=== PATIENT | male | born 1960 | race Caucasian/White ===

== ENCOUNTER 2022-05-14 17:24 | Emergency (ER) | payer MEDICARE, SELFPAY ==
--- NOTE | 2022-05-14 17:29 | XRR_ITS ---
PROCEDURE INFORMATION: Exam: XR Chest Exam date and time: 05/14/2022 6:43 PM Age: 61 years old Clinical indication: Chest wall pain; Additional info: Syncope TECHNIQUE: Imaging protocol: Radiologic exam of the chest. Views: 1 view. COMPARISON: CR XR chest 2V* [id number] 06/08/2017 2:35 PM FINDINGS: Lungs: Unremarkable. No consolidation. Pleural spaces: Unremarkable. No pleural effusion. No pneumothorax. Heart/Mediastinum: Unremarkable. No cardiomegaly. Bones/joints: Unremarkable. XR/XR chest 1V portable [id number] IMPRESSION: No acute findings.
--- NOTE | 2022-05-14 17:29 | CTR_ITS ---
PROCEDURE INFORMATION: Exam: CT Head Without Contrast Exam date and time: 05/14/2022 7:35 PM Age: 61 years old Clinical indication: Syncope and collapse TECHNIQUE: Imaging protocol: Computed tomography of the head without contrast. Radiation optimization: All CT scans at this facility use at least one of these dose optimization techniques: automated exposure control; mA and/or kV adjustment per patient size (includes targeted exams where dose is matched to clinical indication); or iterative reconstruction. COMPARISON: CT head wo con* [id number] 06/08/2017 3:18 PM RADIATION DOSE METRICS: Total DLP (mGy-cm): 1050.78 FINDINGS: Brain: Normal. No hemorrhage. Unremarkable white matter. No mass effect. Cerebral ventricles: No ventriculomegaly. Paranasal sinuses: Visualized sinuses are unremarkable. No fluid levels. Mastoid air cells: Visualized mastoid air cells are well aerated. Bones/joints: Unremarkable. No acute fracture. Soft tissues: Unremarkable. CT/CT head wo con* [id number] IMPRESSION: No acute intracranial abnormality.
[2022-05-14 18:03] VITALS: BP 147/83; PULSE 73; RESP 15; TEMP 36.7; O2SAT 94; BMI 30.7
--- NOTE | 2022-05-14 18:15 | ECG_ITS ---
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 Measurements Intervals [place] Rate: 71 P: 42 [place]: 174 QRS: 17 QRSD: 93 T: 61 QT: 393 QTc: 429 Interpretive Statements SINUS RHYTHM NONSPECIFIC ST & T-WAVE ABNORMALITY Compared to ECG 06/08/2017 14:22:17 Incomplete right bundle-branch block no longer present T-wave abnormality still present Electronically Signed On 05-17-2022 23:06:05 CDT by Harleen Ferreira M.D. [id number]
[2022-05-14 19:12] LABS: Basophils # 0.1 10^3/uL (0.0-0.1); Basophils % 1.1 %; Eosinophils # 0.1 10^3/uL (0.0-0.8); Hematocrit 37.6 % (42.0-52.0); Hemoglobin 11.5 g/dL (11.7-16.6); Lymphocytes # 1.1 10^3/uL (0.8-4.8); Lymphocytes % 13.7 %; Mean Corpuscular HGB Conc 30.6 g/dL (30.0-36.0); Mean Corpuscular Hemoglobin 25.3 pg (28.0-34.0); Mean Corpuscular Volume 82.6 fl (80-94); Monocytes # 0.7 10^3/uL (0.2-0.9); Monocytes % 8.6 %; Neutrophils # 6.15 10^3/uL (1.8-7.7); Neutrophils % 75.1 %; Nucleated Red Blood Cells % 0 %; Platelet Count 251 10^3/cmm (130-400); Red Blood Count 4.55 10^6/uL (4.1-5.3); Red Cell Distribution Width 16.3 % (12.1-15.1); White Blood Count 8.2 10^3/uL (4.0-10.0)
--- NOTE | 2022-05-14 19:29 | ECG_ITS ---
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 Measurements Intervals [place] Rate: 74 P: 42 [place]: 179 QRS: 12 QRSD: 96 T: 56 QT: 379 QTc: 423 Interpretive Statements SINUS RHYTHM NONSPECIFIC T-WAVE ABNORMALITY Compared to ECG 05/14/2022 18:15:21 No significant changes Electronically Signed On 05-17-2022 23:17:28 CDT by Harleen Ferreira M.D. [id number]
[2022-05-14 19:41] LABS: Troponin(5th) Baseline 8 ng/L (0-15)
[2022-05-14 19:49] LABS: Alanine Aminotransferase 47 U/L (0-41); Alkaline Phosphatase 49 U/L (40-130); Anion Gap 17.5 (5-19); Aspartate Amino Transferase 74 U/L (0-40); Blood Urea Nitrogen 13 mg/dL (6-20); Calcium 9.5 mg/dL (8.5-10.5); Carbon Dioxide 24 mmol/L (22-29); Chloride 100 mmol/L (98-107); Globulin 4.1 g/dL (1.3-4.6); Glomerular Filtration Rate 68.5 mL/min (90-130); Glucose 139 mg/dL (65-115); Magnesium 2.3 mg/dL (1.7-2.3); NT Pro B Type Natriuretic Pept 21 pg/mL (0-125); Osmolality Calculated 286 mOsm/kg (285-295); Potassium 4.5 mmol/L (3.5-5.1); Sodium 137 mmol/L (136-145); Total Bilirubin 0.6 mg/dL (0.15-1.2); Total Protein 8.1 g/dL (6.6-8.7)
--- NOTE | 2022-05-14 20:25 | W.ED.DIZZY ---
HPI - Dizziness General: Chief Complaint: Dizziness Stated Complaint: syncope Time Seen by Provider: 05/14/22 19:19 Source: patient and family History of Present Illness: HPI Narrative: 61-year-old male with a complaint of 4 episodes of dizziness/wooziness and feeling like he is going to pass out since last night. Symptoms are resolved currently. They last seconds to minutes at times. With these episodes, he has had some transient blurry vision, diaphoresis and dizziness. No eulogio vertigo symptoms. No chest discomfort. He has been treated for hypertension in the past 2 years or so with atenolol. He has had episodes of quite high and quite low blood pressure evidently the last several days. He was seen at his doctor's office today, and his blood pressure medication was changed from atenolol to losartan, but he has not had any medication for blood pressure today. Initially here, blood pressure was high MD elicited complaint: dizziness and near syncope Pertinent past history: other Onset (ago): hour(s) Timing: gradual onset Severity: moderate Description: lightheadedness and near-syncope Context: other History of similar symptoms: Yes Exacerbating factors: other Relieving factors: nothing Associated symptoms: Reports diaphoresis, nausea and weakness (generalized); Denies chest pain, chills, cough, fevers/chills, headache(s), nasal congestion, short of breath or vomiting Associated neuro symptoms: Deny confusion, difficulty speaking, extremity weakness, facial numbness, facial weakness or numbness in extremities Review of Systems Const: Reports: diaphoresis; Denies: chills ENMT: Denies: nasal congestion Card: Denies: chest pain GI: Reports: nausea; Denies: vomiting Neuro: Denies: headache(s), numbness in extremities or confusion Physical Exam Const: COMMON NORMALS: no acute distress and alert GENERAL APPEARANCE: cooperative; not ill appearing and not frail appearing HENMT: COMMON NORMALS: normocephalic, atraumatic and Normal external nose present HEAD & SCALP: normocephalic and atraumatic FACE & SINUS: normal facial exam and face symmetric NOSE: Normal external nose present Eye: COMMON NORMALS: Equal, round and reactive pupils present and EOMs intact bilaterally PUPIL: Yes Equal, round and reactive pupils present Neck/C-Spine: GENERAL: Yes trachea midline Chest: CHEST: Yes Symmetrical chest wall rise Resp: COMMON NORMALS: normal respiratory effort, No retractions, No use of accessory muscles and clear to auscultation bilaterally AUSCULTATION: clear to auscultation bilaterally Cardio: COMMON NORMALS: regular rate and regular rhythm RATE: regular rate RHYTHM: regular rhythm GI: COMMON NORMALS: Normal to inspection, nondistended, normoactive bowel sounds present Extremity: COMMON NORMALS: no pedal edema Neuro: LJ COMA SCALE: document GCS findings [place] coma scale eye opening: Spontaneous Lj coma scale verbal response: Orientated Lj coma scale motor response: Obey commands [place] coma scale total score: 15 COMMON NORMALS: CN's II-XII intact bilaterally SENSORIUM/ORIENTATION: Yes alert COORDINATION/BALANCE: lgtmlc-fx-jecn test normal and bezk-mo-jltv test normal SPEECH: speech normal SENSORY EXAM: Yes extremities (intact) MOTOR EXAM: 5/5 motor strength present throughout, Pronator motor function not present and Motor fasciculations not present COORDINATION: fsdxit-wp-yqxt test normal and azeq-rw-kjqb test normal Psych: COMMON NORMALS: speech normal SPEECH: Yes normal speech Skin: COMMON NORMALS: no rashes or lesions noted GENERAL SKIN EXAM: no rashes or lesions noted Course Vital Signs: Vital signs: Vital Signs Temperature 98.0 F 05/14/22 18:03 Pulse Rate 73 05/14/22 18:03 Respiratory Rate 15 05/14/22 18:03 Blood Pressure 147/83 05/14/22 18:03 Pulse Oximetry 94 05/14/22 18:03 Oxygen Delivery Me thod 05/14/22 18:03 MDM - Dizziness Medical Decision Making Patient is asymptomatic currently. Rhythm has been sinus on the monitor. Blood pressure currently 147/78. Rate is 78. Sats 96% on room air with respirations 18. EKG shows a sinus rhythm with normal axis and intervals. There are no significant ischemic EKG changes in terms of ST or T wave changes. Hemoglobin is 11.5. White blood cell count is 8.2. BMP is not remarkable. Chest x-ray is normal. Head CT shows no acute findings. TSH is normal. Troponin did not change at 2 hours. Since patient is asymptomatic, he will be released. He will discontinue his atenolol, and continue with the losartan he was prescribed earlier today. We will make an attempt to set him up for a stress test as an outpatient. They know to return for any worsening symptoms. Lab Data : 05/14/22 19:00 05/14/22 19:00 Radiology Impressions Chest X-Ray 05/14/22: IMPRESSION: No acute findings. Head CT 05/14/22: IMPRESSION: No acute intracranial abnormality. Laboratory Results WBC 8.2 10^3/uL (4.0-10.0) 05/14/22 19:00 RBC 4.55 10^6/uL (4.1-5.3) 05/14/22 19:00 Hgb 11.5 g/dL (11.7-16.6) L 05/14/22 19:00 Hct 37.6 % (42.0-52.0) L 05/14/22 19:00 MCV 82.6 fl (80-94) 05/14/22 19:00 MCH 25.3 pg (28.0-34.0) L 05/14/22 19:00 MCHC 30.6 g/dL (30.0-36.0) 05/14/22 19:00 RDW 16.3 % (12.1-15.1) H 05/14/22 19:00 Plt Count 251 10^3/cmm (130-400) 05/14/22 19:00 MPV 9.0 fL (7.4-10.4) 05/14/22 19:00 Neut % (Auto) 75.1 % 05/14/22 19:00 Lymph % (Auto) 13.7 % 05/14/22 19:00 [place] % (Auto) 8.6 % 05/14/22 19:00 Eos % (Auto) 1.0 % 05/14/22 19:00 Baso % (Auto) 1.1 % 05/14/22 19:00 Neut # (Auto) 6.15 10^3/uL (1.8-7.7) 05/14/22 19:00 Lymph # (Auto) 1.1 10^3/uL (0.8-4.8) 05/14/22 19:00 [place] # (Auto) 0.7 10^3/uL (0.2-0.9) 05/14/22 19:00 Eos # (Auto) 0.1 10^3/uL (0.0-0.8) 05/14/22 19:00 Baso # (Auto) 0.1 10^3/uL (0.0-0.1) 05/14/22 19:00 Nucleated RBC % (auto) 0 % 05/14/22 19:00 Nucleated RBCs # 0.0 /100WBC 05/14/22 19:00 Sodium 137 mmol/L (136-145) 05/14/22 19:00 Potassium 4.5 mmol/L (3.5-5.1) 05/14/22 19:00 Chloride 100 mmol/L (98-107) 05/14/22 19:00 Carbon Dioxide 24 mmol/L (22-29) 05/14/22 19:00 Anion Gap 17.5 (5-19) 05/14/22 19:00 BUN 13 mg/dL (6-20) 05/14/22 19:00 Creatinine 1.1 mg/dL (0.7-1.2) 05/14/22 19:00 GFR Calculation 68.5 mL/min (90-130) L 05/14/22 19:00 Glucose 139 mg/dL (65-115) H 05/14/22 19:00 Calculated Osmolality 286 mOsm/kg (285-295) 05/14/22 19:00 Calcium 9.5 mg/dL (8.5-10.5) 05/14/22 19:00 Magnesium 2.3 mg/dL (1.7-2.3) 05/14/22 19:00 Total Bilirubin 0.6 mg/dL (0.15-1.2) 05/14/22 19:00 AST 74 U/L (0-40) H 05/14/22 19:00 ALT 47 U/L (0-41) H 05/14/22 19:00 Alkaline Phosphatase 49 U/L (40-130) 05/14/22 19:00 Troponin T Baseline 8 ng/L (0-15) 05/14/22 19:00 Troponin T 120 Minute 8.42 ng/L (0-15) 05/14/22 20:20 Delta Troponin T 0.42 ABS# (0-10) 05/14/22 20:20 NT-Pro-B Natriuret Pep 21 pg/mL (0-125) 05/14/22 19:00 Total Protein 8.1 g/dL (6.6-8.7) 05/14/22 19:00 Albumin 4.0 g/dL (3.5-5.2) 05/14/22 19:00 Globulin 4.1 g/dL (1.3-4.6) 05/14/22 19:00 TSH 2.49 uIU/mL (0.27-4.20) 05/14/22 19:00 Discharge Plan Discharge Patient Disposition: Home Clinical Impression: Near syncope Condition: Stable Discharge Orders: Discharge ED (Routine); Ordered 05/14/22 Ordered By: Roger Byrnes Patient Instructions: Near Syncope (ED) Activity Restrictions/Additional Instructions: Return for repeated episodes of passing out, chest discomfort, shortness of breath, any other concerning symptoms. Stop your atenolol as ordered, in favor of the losartan you were prescribed. We will attempt to set up an outpatient stress test for you. You should get a call regarding this next week from case management. See your doctor next week. Take your blood pressure twice daily Coding Level of Care Code ED Computer Numerical Control Grinder for Chg Fwd Exam Comprehensive
[2022-05-14] MEDS: enalaprilat 1.25 mg/mL Inj IVP (20:32)
[2022-05-14 20:54] LABS: Troponin 5 2HR 8.42 ng/L (0-15)
[2022-05-14 21:07] LABS: Thyroid Stimulating Hormone 2.49 uIU/mL (0.27-4.20)
[2022-05-14 21:21] LABS: Troponin 5 2HR Delta 0.42 ABS# (0-10)
== END 2022-05-14 21:35 | disposition home or self-care (01) ==
PROVIDERS: Emergency Medicine; Emergency Provider Emergency Medicine
DX: R55 Syncope and collapse (principal); R42 Dizziness and giddiness; I10 Essential (primary) hypertension; Z79.899 Other long term (current) drug therapy
CPT/HCPCS: 70450; 71045; 80053; 83735; 83880; 84443; 84484; 85025; 93005; 96374; 99285; J3490

== ENCOUNTER 2022-05-14 22:05 | Emergency (ER) | payer MEDICARE, SELFPAY ==
[2022-05-14 22:46] VITALS: BP 178/93; PULSE 72; RESP 16; TEMP 36.6; O2SAT 93; BMI 30.6
[2022-05-15 00:53] VITALS: BP 161/87; PULSE 77; RESP 18; O2SAT 97
[2022-05-15 01:19] VITALS: BP 160/87; BP 161/84; PULSE 77; PULSE 79; PULSE 80
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
--- NOTE | 2022-05-15 01:43 | ECG_ITS ---
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 Measurements Intervals [place] Rate: 61 P: 56 [place]: 176 QRS: 53 QRSD: 94 T: 41 QT: 427 QTc: 430 Interpretive Statements SINUS RHYTHM NONSPECIFIC T-WAVE ABNORMALITY Compared to ECG 05/14/2022 19:30:15 No significant changes Electronically Signed On 05-17-2022 23:05:30 CDT by Harleen Ferreira M.D. [id number]
[2022-05-15 03:07] VITALS: BP 147/69; PULSE 68; RESP 16; O2SAT 95
--- NOTE | 2022-05-17 17:03 | DCPLANNER ---
Addendum entered by Eileen Clark 07/14/22 12:09: Patient had a stress test scheduled - patient did not attend appointment Addendum entered by Eileen Clark 06/17/22 05:38: Patient has an out patient stress test scheduled for Thursday, July 07, 2022 at 10:45. Centralized scheduling will call patient with appointment information. Original Note: solar project manager had message to schedule an outpatient stress test for patient. solar project manager faxed signed order to centralized scheduling, who will call patient with appointment information.
== END 2022-05-15 03:09 | disposition home or self-care (01) ==
PROVIDERS: Emergency Provider Physician Assistant
DX: R55 Syncope and collapse (principal)
CPT/HCPCS: 93005; 99283